=== PATIENT | female | born 1970 | race American Indian/Alaskan Native ===

== ENCOUNTER 2018-11-28 21:00 | Emergency (ER) | payer MEDICAID ==
[2018-11-28] MEDS ORDERED: SUBLIMAZE IV ONE (21:26)
[2018-11-28] MEDS ORDERED: ZOFRAN IV ONE (21:26)
--- NOTE | 2018-11-28 21:31 | Emergency Department Report ---
HPI <DESHAWN BOURGEOIS Last Filed: 11/29/18 05:32> - HPI HPI: Room 24 The patient is a 48-year-old female presenting with a chief complaint of abdominal pain. The patient states for one week she's had a constant periumbilical pain. Patient denies nausea vomiting or diarrhea. Patient denies history of fever. The patient admits to auditory hallucinations and states she has a diagnosis of schizophrenia. The patient gives her pain a score of 8/10 Location: [See above] Duration: [See above] Quality: [See above] Severity: [See above] Modifying factors: [see above] Context: [see above] Mode of transportation: [not driving] <HERRERA CASTORENA - Last Filed: 11/30/18 05:47> - General Chief Complaint: Psych Time Seen by Provider: 11/28/18 21:13 ED Past Medical Hx <DESHAWN BOURGEOIS Last Filed: 11/29/18 05:32> - Past Medical History Previous Medical History?: Yes Hx Hypertension: Yes Hx Psychiatric Treatment: Yes (schizophrenia, bipolar disorder) Hx Asthma: Yes - Surgical History Past Surgical History?: No - Family History Family history: no significant - Social History Smoking Status: Never Smoker Substance Use Type: None <HERRERA CASTORENA Dank - Last Filed: 11/30/18 05:47> - Medications Home Medications: Home Medications Medication Instructions Recorded Confirmed Last Taken Type Famotidine [Pepcid] 20 mg PO BID #20 tablet 11/29/18 Unknown Rx ED Review of Systems ROS: Stated complaint: ABDOMINAL PAIN Other details as noted in HPI <DESHAWN BOURGEOIS - Last Filed: 11/29/18 05:32> ROS: Stated complaint: ABDOMINAL PAIN Other details as noted in HPI Constitutional: denies: fever Eyes: denies: eye pain ENT: denies: throat pain Respiratory: no symptoms reported Cardiovascular: denies: chest pain Endocrine: no symptoms reported Gastrointestinal: abdominal pain. denies: nausea, vomiting, diarrhea Genitourinary: denies: dysuria Musculoskeletal: denies: back pain Neurological: denies: headache <HERRERA CASTORENA Dank - Last Filed: 11/30/18 05:47> Physical Exam - Physical Exam Vital Signs: Vital Signs 11/28/18 11/28/18 11/29/18 21:11 22:50 00:04 Temperature 98.4 F Pulse Rate 88 85 78 Respiratory 18 18 18 Rate Blood Pressure 127/62 Blood Pressure 97/58 102/64 [Left] O2 Sat by Pulse 99 97 99 Oximetry 11/29/18 11/29/18 11/29/18 01:00 01:30 02:00 Temperature Pulse Rate 89 69 80 Respiratory 16 19 17 Rate Blood Pressure Blood Pressure 102/60 93/57 94/49 [Left] O2 Sat by Pulse 99 98 95 Oximetry <DESHAWN BOURGEOIS - Last Filed: 11/29/18 05:32> - Physical Exam Vital Signs: Vital Signs 11/28/18 21:11 Temperature 98.4 F Pulse Rate 88 Respiratory 18 Rate Blood Pressure 127/62 O2 Sat by Pulse 99 Oximetry Physical Exam: GENERAL: The patient is well-developed well-nourished female lying on stretcher not appear to be in acute distress. [] HEENT: Normocephalic. Atraumatic. Extraocular motions are intact. Patient has moist mucous membranes. NECK: Supple. Trachea midline CHEST/LUNGS: Clear to auscultation. There is no respiratory distress noted. HEART/CARDIOVASCULAR: Regular. There is no tachycardia. There is no gallop rub or murmur. ABDOMEN: Abdomen is soft, with diffuse tenderness to palpation. No rebound or guarding. Patient has normal bowel sounds. There is no abdominal distention. SKIN: There is no rash. There is no edema. There is no diaphoresis. NEURO: The patient is awake, alert, and oriented. The patient is cooperative. The patient has no focal neurologic deficits. The patient has normal speech MUSCULOSKELETAL: There is no evidence of acute injury. <HERRERA CASTORENA - Last Filed: 11/30/18 05:47> ED Course Vital Signs 11/28/18 11/28/18 11/29/18 21:11 22:50 00:04 Temperature 98.4 F Pulse Rate 88 85 78 Respiratory 18 18 18 Rate Blood Pressure 127/62 Blood Pressure 97/58 102/64 [Left] O2 Sat by Pulse 99 97 99 Oximetry 11/29/18 11/29/18 11/29/18 01:00 01:30 02:00 Temperature Pulse Rate 89 69 80 Respiratory 16 19 17 Rate Blood Pressure Blood Pressure 102/60 93/57 94/49 [Left] O2 Sat by Pulse 99 98 95 Oximetry - Reevaluation(s) Reevaluation #1: 11/29/18 05:33 Patient observed in this emergency room 4 hours without clinical decompensation. She is eating without difficulty. She does not meet 1013 criteria at this time. She does not want to go back to her detention. Case measured consult has been requested. Patient does not appear to have a medically emergent condition at this time. She does not appear to have a psychiatrically emergent condition at this time. It appears that her main issue is psychosocial. <DESHAWN BOURGEOIS - Last Filed: 11/29/18 05:32> Vital Signs 11/28/18 21:11 Temperature 98.4 F Pulse Rate 88 Respiratory 18 Rate Blood Pressure 127/62 O2 Sat by Pulse 99 Oximetry <HERRERA CASTORENA - Last Filed: 11/30/18 05:47> ED Medical Decision Making - Lab Data Result diagrams: 11/28/18 21:35 11/28/18 21:35 <DESHAWN BOURGEOIS - Last Filed: 11/29/18 05:32> - Lab Data Result diagrams: 11/28/18 21:35 11/28/18 21:35 Laboratory Tests 11/28/18 11/28/18 11/28/18 21:35 21:35 21:35 WBC 7.6 RBC 3.73 Hgb 11.2 Hct 33.1 MCV 89 MCH 30 MCHC 34 RDW 13.9 Plt Count 254 Lymph % (Auto) 34.1 [place] % (Auto) 9.4 H Eos % (Auto) 0.8 Baso % (Auto) 1.4 Lymph # 2.6 [place] # 0.7 Eos # 0.1 Baso # 0.1 Seg Neutrophils % 54.3 Seg Neutrophils # 4.1 Sodium 138 Potassium 3.8 Chloride 100.2 Carbon Dioxide 26 Anion Gap 16 BUN 16 Creatinine 0.7 Estimated GFR > 60 BUN/Creatinine Ratio 23 Glucose 96 Calcium 9.0 Total Bilirubin 0.20 AST 15 ALT 11 Alkaline Phosphatase 130 H Total Protein 8.1 Albumin 3.6 L Albumin/Globulin Ratio 0.8 Lipase 36 Salicylates < 0.3 L Urine Opiates Screen Urine Methadone Screen Acetaminophen Ur Barbiturates Screen Ur Phencyclidine Scrn Ur Amphetamines Screen U Benzodiazepines Scrn Urine Cocaine Screen U Marijuana (THC) Screen Drugs of Abuse Note Plasma/Serum Alcohol 11/28/18 11/28/18 11/28/18 21:35 21:35 21:35 WBC RBC Hgb Hct MCV MCH MCHC RDW Plt Count Lymph % (Auto) [place] % (Auto) Eos % (Auto) Baso % (Auto) Lymph # [place] # Eos # Baso # Seg Neutrophils % Seg Neutrophils # Sodium Potassium Chloride Carbon Dioxide Anion Gap BUN Creatinine Estimated GFR BUN/Creatinine Ratio Glucose Calcium Total Bilirubin AST ALT Alkaline Phosphatase Total Protein Albumin Albumin/Globulin Ratio Lipase Salicylates Urine Opiates Screen Presumptive negative Urine Methadone Screen Presumptive negative Acetaminophen < 5.0 L Ur Barbiturates Screen Presumptive negative Ur Phencyclidine Scrn Presumptive negative Ur Amphetamines Screen Presumptive negative U Benzodiazepines Scrn Presumptive negative Urine Cocaine Screen Presumptive negative U Marijuana (THC) Screen Presumptive negative Drugs of Abuse Note Disclamer Plasma/Serum Alcohol < 0.01 - Radiology Data Radiology results: report reviewed (CT abdomen and pelvis), image reviewed (CT abdomen and pelvis) [place] [address] Cat Scan Report Signed Patient: LAURA BLACKWELL MR#: [id number] 408 : 1970 Acct:[id number] Age/Sex: 48 / F ADM Date: 11/28/18 Loc: ED Attending Dr: Ordering Physician: HERRERA CASTORENA MD Date of Service: 11/28/18 Procedure(s): CT abdomen pelvis w con Accession Number(s): [id number] cc: HERRERA CASTORENA MD PROCEDURE: CT ABDOMEN PELVIS W CON TECHNIQUE: Computerized axial tomography of the abdomen and pelvis was performed after the IV injection of iodinated nonionic contrast. CT DOSE LENGTH PRODUCT: mGycm HISTORY: diffuse abdominal pain COMPARISONS: None . FINDINGS: Benign-appearing ring-shaped calcifications are noted along the right lateral margin of right lobe liver. Spleen, pancreas and adrenal glands are within normal limits. Bilateral kidneys demonstrate uniform enhancement without hydronephrosis. Urinary bladder is unremarkable. Aorta is of normal caliber. There is no free fluid or free air. Status post cholecystectomy. Small bowel loops are within normal limits. Appendix is normal. Vertebral height is normal. IMPRESSION: No acute intra-abdominal or pelvic pathology This document is electronically signed by Brook Roca MD., Nov 28 2018 11:42:53 PM ET Transcribed By: [facility] [place] Dictated By: BROOK ROCA Electronically Authenticated By: BROOK ROCA Signed Date/Time: 11/28/182344 DD/ 28 TD/TT: 11/28/182328 - Differential Diagnosis gastritis, peptic ulcer disease, pancreatitis, diverticulitis <MIKEMikiHERRERA Dank - Last Filed: 11/30/18 05:47> Critical care attestation.: If time is entered above; I have spent that time in minutes in the direct care of this critically ill patient, excluding procedure time. <DESHAWN BOURGEOIS - Last Filed: 11/29/18 05:32> Critical care attestation.: If time is entered above; I have spent that time in minutes in the direct care of this critically ill patient, excluding procedure time. <MIKEMikiHERRERA Dank - Last Filed: 11/30/18 05:47> ED Disposition Is pt being admited?: No Does the pt Need Aspirin: No <DESHAWN BOURGEOIS - Last Filed: 11/29/18 05:32> Is pt being admited?: No Does the pt Need Aspirin: No Time of Disposition: 00:56 (awaiting eval) <MIKEMikiHERRERA Dank - Last Filed: 11/30/18 05:47> Clinical Impression: Acute abdominal pain, Social problem Disposition: DC-01 TO HOME OR SELFCARE Condition: Stable Instructions: Abdominal Pain (ED) Additional Instructions: Return to the emergency department immediately should you develop worsening symptoms, fever, inability to tolerate food or liquid or any other concerns. Prescriptions: Famotidine [Pepcid] 20 mg PO BID #20 tablet Referrals: KRYSTIAN VIDES MD [Primary Care Provider] - 3-5 Days NARDA TRAN MD [Staff Physician] - 3-5 Days (Dr. Tran is a weatherstrip machine operator. Please follow up with him for further evaluation) [facility] [Outside] - 3-5 Days
[2018-11-28 22:03] LABS: Basophils # (Auto) 0.1 K/mm3 (0.0-0.1); Basophils % (Auto) 1.4 % (0.0-1.8); Eosinophils # (Auto) 0.1 K/mm3 (0.0-0.4); Eosinophils % (Auto) 0.8 % (0.0-4.3); Hematocrit 33.1 % (30.3-42.9); Hemoglobin 11.2 gm/dl (10.1-14.3); Lymphocytes # (Auto) 2.6 K/mm3 (1.2-5.4); Lymphocytes % (Auto) 34.1 % (13.4-35.0); Mean Corpuscular HGB Conc 34 % (30-34); Mean Corpuscular Volume 89 fl (79-97); Monocytes # (Auto) 0.7 K/mm3 (0.0-0.8); Monocytes % (Auto) 9.4 % (0.0-7.3); Platelet Count 254 K/mm3 (140-440); Red Blood Count 3.73 M/mm3 (3.65-5.03); Red Cell Distribution Width 13.9 % (13.2-15.2)
[2018-11-28 22:07] LABS: Amphetamine Screen,Urine PRESUMPTIVE NEGATIVE; Benzodiazepines Screen,Urine PRESUMPTIVE NEGATIVE; Cannabinoid Screen,Urine PRESUMPTIVE NEGATIVE; Cocaine Screen,Urine PRESUMPTIVE NEGATIVE; Methadone Screen,Urine PRESUMPTIVE NEGATIVE; Opiate Screen,Urine PRESUMPTIVE NEGATIVE
[2018-11-28 22:29] LABS: Alanine Aminotransferase 11 units/L (7-56); Albumin 3.6 g/dL (3.9-5); BUN/Creatinine Ratio 23; Blood Urea Nitrogen 16 mg/dL (7-17); Hemolysis Index 17
--- NOTE | 2018-11-28 23:45 | Cat Scan Report ---
PROCEDURE: CT ABDOMEN PELVIS W CON TECHNIQUE: Computerized axial tomography of the abdomen and pelvis was performed after the IV inject ion of iodinated nonionic contrast. CT DOSE LENGTH PRODUCT: mGycm HISTORY: diffuse abdominal pain COMPARISONS: None . FINDINGS: Benign-appearing ring-shaped calcifications are noted along the right lateral margin of right lobe li ronda. Spleen, pancreas and adrenal glands are within normal limits. Bilateral kidneys demonstrate unif orm enhancement without hydronephrosis. Urinary bladder is unremarkable. Aorta is of normal caliber. There is no free fluid or free air. Status post cholecystectomy. Small bowel loops are within normal limits. Appendix is normal. Vertebral height is normal. IMPRESSION: No acute intra-abdominal or pelvic pathology This document is electronically signed by Guero Roca MD., Nov 28 2018 11:42:53 PM ET
[2018-11-29 02:43] LABS: Bilirubin,Urine NEG (Negative); Blood,Urine NEG (Negative); Color,Urine Straw (Yellow); Protein,Urine <15 mg/dL mg/dL (Negative); Urobilinogen,Urine < 2.0 mg/dL (<2.0)
[2018-11-29 05:48] VITALS: BP 97/55
== END 2018-11-29 05:48 | disposition home or self-care (01) ==
LOC: ED 21:00
DX: R10.33 Periumbilical pain (principal); I10 Essential (primary) hypertension; J45.909 Unspecified asthma, uncomplicated; F31.9 Bipolar disorder, unspecified; F20.9 Schizophrenia, unspecified
CPT/HCPCS: 36415; 74177; 80053; 80307; 81001; 83690; 85025; 96374; 96375; 99285; G0480; J2405; J3010; Q9967; 80320

== ENCOUNTER 2018-12-28 20:02 | Emergency (ER) | payer MEDICAID ==
--- NOTE | 2018-12-28 20:12 | Emergency Department Report ---
Blank Doc - Documentation Documentation: This is a 48-year-old female that presents with nausea vomiting. This initial assessment/diagnostic orders/clinical plan/treatment(s) is/are subject to change based on patient's health status, clinical progression and re- assessment by fellow clinical providers in the ED. Further treatment and workup at subsequent clinical providers discretion. Patient/guardians urged not to elope from the ED as their condition may be serious if not clinically assessed and managed. Initial orders include: 1- Patient sent to [facility] for further evaluation and treatment 2- labs
[2018-12-28 20:14] VITALS: BP 141/88
[2018-12-28 20:43] LABS: Alanine Aminotransferase 17 units/L (7-56); Albumin 4.1 g/dL (3.9-5); BUN/Creatinine Ratio 24; Basophils # (Auto) 0.1 K/mm3 (0.0-0.1); Basophils % (Auto) 0.6 % (0.0-1.8); Blood Urea Nitrogen 19 mg/dL (7-17); Calcium 10.1 mg/dL (8.4-10.2); Eosinophils % (Auto) 0.1 % (0.0-4.3); Hematocrit 40.3 % (30.3-42.9); Hemoglobin 13.3 gm/dl (10.1-14.3); Hemolysis Index 8; Lymphocytes # (Auto) 2.8 K/mm3 (1.2-5.4); Lymphocytes % (Auto) 24.8 % (13.4-35.0); Mean Corpuscular HGB Conc 33 % (30-34); Mean Corpuscular Volume 88 fl (79-97); Monocytes # (Auto) 0.8 K/mm3 (0.0-0.8); Monocytes % (Auto) 6.8 % (0.0-7.3); Platelet Count 316 K/mm3 (140-440); Red Blood Count 4.59 M/mm3 (3.65-5.03); Red Cell Distribution Width 13.6 % (13.2-15.2)
[2018-12-28] MEDS ORDERED: PEPCID IV ONE (23:47)
[2018-12-28] MEDS ORDERED: ZOFRAN IV ONE (23:47)
[2018-12-28] MEDS ORDERED: NACL 0.9% 1000 ML 1,000 ML IV ONE (23:47)
[2018-12-29] MEDS ORDERED: K-DUR PO ONE (00:31)
--- NOTE | 2018-12-29 00:52 | Emergency Department Report ---
<CHINALEONARDATriceANNIKA - Last Filed: 12/29/18 05:01> ED N/V/D HPI - General Chief complaint: Nausea/Vomiting/Diarrhea Stated complaint: VOMITTING Time Seen by Provider: 12/28/18 20:11 - Related Data Previous Rx's Medication Instructions Recorded Last Taken Type Famotidine [Pepcid] 20 mg PO BID #20 tablet 11/29/18 Unknown Rx Ondansetron [Zofran Odt] 4 mg PO Q6HR #15 tab.rapdis 12/29/18 Unknown Rx Ranitidine HCl [Zantac] 150 mg PO Q12H #20 tablet 12/29/18 Unknown Rx Allergies Allergy/AdvReac Type Severity Reaction Status Date / Time No Known Allergies Allergy Verified 12/28/18 20:14 ED Past Medical Hx - Medications Home Medications: Home Medications Medication Instructions Recorded Confirmed Last Taken Type Famotidine [Pepcid] 20 mg PO BID #20 tablet 11/29/18 Unknown Rx Ondansetron [Zofran Odt] 4 mg PO Q6HR #15 tab.rapdis 12/29/18 Unknown Rx Ranitidine HCl [Zantac] 150 mg PO Q12H #20 tablet 12/29/18 Unknown Rx ED Course - Reevaluation(s) Reevaluation #1: 12/29/18 05:01 I assumed care of the patient from Dr. Bowman at shift change at 0200 hours. Patient awaiting imaging test results and urinalysis. On reevaluation, the patient tolerated the oral fluids well with no nausea or vomiting in the ED. Abdomen series x-ray shows no acute abdominal pathology or cardiopulmonary abnormalities. Urinalysis is unremarkable except for a few white blood cells in the urine possibly from contamination. Patient was discharged home with antiemetics and H2 blockers as advised by Dr. Bowman. 12/29/18 05:08 ED Medical Decision Making - Lab Data Result diagrams: 12/28/18 20:17 12/28/18 20:17 - Radiology Data Radiology results: report reviewed, image reviewed Abdomen series x-ray shows no acute cardiopulmonary abnormalities or acute abdomen pathology. - Medical Decision Making I assumed care of the patient from Dr. Bowman at shift change at 0200 hours. Patient awaiting imaging test results and urinalysis. On reevaluation, the patient tolerated the oral fluids well with no nausea or vomiting in the ED. Abdomen series x-ray shows no acute abdominal pathology or cardiopulmonary abnormalities. Urinalysis is unremarkable except for a few white blood cells in the urine possibly from contamination. Patient was discharged home with antiemetics and H2 blockers as advised by Dr. Bowman. ED Disposition Clinical Impression: Nausea and vomiting in adult, Gastroenteritis GERD (gastroesophageal reflux disease) Qualifiers: Esophagitis presence: without esophagitis Qualified Code(s): K21.9 - Gastro- esophageal reflux disease without esophagitis Disposition: TO HOME OR SELFCARE Is pt being admited?: No Does the pt Need Aspirin: No Condition: Stable Instructions: Gastroenteritis (ED), Gastroesophageal Reflux Disease (ED), Acute Nausea and Vomiting (ED) Additional Instructions: Maintain a clear liquid diet for 12-24 hours, drink plenty of fluids, take medications and follow-up with your primary care physician in 3-5 days for reevaluation. Return to the ED immediately if symptoms get worse. Prescriptions: Ranitidine HCl [Zantac] 150 mg PO Q12H #20 tablet Ondansetron [Zofran Odt] 4 mg PO Q6HR #15 tab.rapdis Referrals: 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 They have been trying [id number] medication without relief. No reports of diarrhea or fever. Triage note said abdominal pain scale 5/10 however patient denies abdominal pain currently. [employer] [facility] states that patient has not been with them a long time and she does not know the details of her past medical history. She has continued to vomit in the waiting room waiting to be seen and is currently coffee-ground in appearance however food and beverage server states that initially vomitus was clear and no gross hematemesis reported. ED Review of Systems ROS: Stated complaint: VOMITTING Other details as noted in HPI Comment: All other systems reviewed and negative ED Past Medical Hx - Past Medical History Hx Hypertension: Yes Hx Psychiatric Treatment: Yes (schizophrenia, bipolar disorder) Hx Asthma: Yes Additional medical history: Bipolar, Schizo, - Social History Smoking Status: Never Smoker Substance Use Type: None ED Physical Exam - General Limitations: No Limitations - Other Other exam information: General: No limitations, patient is alert in no acute distress Head exam: Atraumatic, normocephalic Eyes exam: Normal appearance, nonicteric sclera ENT: Dry mucous membranes Neck exam: Normal inspection Respiratory exam: Clear to auscultation bilateral, no wheezes, rales, crackles Cardiovascular: Normal rate and rhythm, normal heart sounds Abdomen: Soft, nondistended, and nontender, with normal bowel sounds, no reboun d, or guarding. No surgical scars to the abdomen Extremity: Full range of motion normal inspection no deformity Back: Normal Inspection, full range of motion, no tenderness Neurologic: Alert, cranial nerves intact, no motor or sensory deficit Psychiatric: normal affect, normal mood Skin: Warm, dry, intact ED Course Vital Signs 12/28/18 12/28/18 12/29/18 20:10 20:11 05:15 Temperature 98.3 F 98.3 F Pulse Rate 85 82 77 Respiratory 18 18 17 Rate Blood Pressure 141/88 141/88 O2 Sat by Pulse 99 99 99 Oximetry - Reevaluation(s) Reevaluation #1: 12/29/18 00:50 Patient treated with IV Zofran, 1 L normal saline, and IV Pepcid. Pt to receive mouth potassium for mild hypokalemia which patient is tolerating by mouth. Awaiting results for urine straight cath is also rule out urinary tract infection and blood test to rule out . X-ray pending result hcg result. Pt will be signed out to ITALIA Blanc to f/u results and reassess for PO tolerance. Reevaluation #2: 01/05/19 18:14 I reevaluated her at this time. Did have a small amount of white cells. no culture sent. I attempted to call both numbers on record to check on the pt. Number provided for Parker noonan states that mailbox is full. I called sister on record and she does not have the number to get in contact with the pt. ED Medical Decision Making - Lab Data Result diagrams: 12/28/18 20:17 12/28/18 20:17 Lab Results 12/28/18 12/28/18 12/29/18 Range/Units 20:17 20:17 00:30 WBC 11.4 H (4.5-11.0) K/mm3 RBC 4.59 (3.65-5.03) M/mm3 Hgb 13.3 (10.1-14.3) gm/dl Hct 40.3 (30.3-42.9) % MCV 88 (79-97) fl MCH 29 (28-32) pg MCHC 33 (30-34) % RDW 13.6 (13.2-15.2) % Plt Count 316 (140-440) K/mm3 Lymph % (Auto) 24.8 (13.4-35.0) % [place] % (Auto) 6.8 (0.0-7.3) % Eos % (Auto) 0.1 (0.0-4.3) % Baso % (Auto) 0.6 (0.0-1.8) % Lymph # 2.8 (1.2-5.4) K/mm3 [place] # 0.8 (0.0-0.8) K/mm3 Eos # 0.0 (0.0-0.4) K/mm3 Baso # 0.1 (0.0-0.1) K/mm3 Seg Neutrophils % 67.7 (40.0-70.0) % Seg Neutrophils # 7.7 (1.8-7.7) K/mm3 Sodium 135 L (137-145) mmol/L Potassium 3.4 L (3.6-5.0) mmol/L Chloride 90.6 L (98-107) mmol/L Carbon Dioxide 27 (22-30) mmol/L Anion Gap 21 mmol/L BUN 19 H (7-17) mg/dL Creatinine 0.8 (0.7-1.2) mg/dL Estimated GFR > 60 ml/min BUN/Creatinine Ratio 24 % Glucose 105 H (65-100) mg/dL Calcium 10.1 (8.4-10.2) mg/dL Total Bilirubin 0.50 (0.1-1.2) mg/dL AST 20 (5-40) units/L ALT 17 (7-56) units/L Alkaline Phosphatase 136 H (35-129) units/L Total Protein 9.4 H (6.3-8.2) g/dL Albumin 4.1 (3.9-5) g/dL Albumin/Globulin Ratio 0.8 % Lipase 25 (13-60) units/L HCG, Qual (Negative) Urine Color [place] (Yellow) Urine Turbidity Slightly-cloudy (Clear) Urine pH 5.0 (5.0-7.0) Ur Specific [place] 1.027 (1.003-1.030) Urine Protein 30 mg/dl (Negative) mg/dL Urine Glucose (UA) Neg (Negative) mg/dL Urine Ketones 20 (Negative) mg/dL Urine Blood Sm (Negative) Urine Nitrite Neg (Negative) Urine Bilirubin Neg (Negative) Urine Urobilinogen 4.0 (<2.0) mg/dL Ur Leukocyte Esterase Neg (Negative) Urine WBC (Auto) 7.0 H (0.0-6.0) /HPF Urine RBC (Auto) 10.0 (0.0-6.0) /HPF U Epithel Cells (Auto) 1.0 (0-13.0) /HPF Urine Bacteria (Auto) 1+ (Negative) /HPF Hyaline Casts 24 /LPF Urine Mucus 3+ /HPF 12/29/18 Range/Units 01:35 WBC (4.5-11.0) K/mm3 RBC (3.65-5.03) M/mm3 Hgb (10.1-14.3) gm/dl Hct (30.3-42.9) % MCV (79-97) fl MCH (28-32) pg MCHC (30-34) % RDW (13.2-15.2) % Plt Count (140-440) K/mm3 Lymph % (Auto) (13.4-35.0) % [place] % (Auto) (0.0-7.3) % Eos % (Auto) (0.0-4.3) % Baso % (Auto) (0.0-1.8) % Lymph # (1.2-5.4) K/mm3 [place] # (0.0-0.8) K/mm3 Eos # (0.0-0.4) K/mm3 Baso # (0.0-0.1) K/mm3 Seg Neutrophils % (40.0-70.0) % Seg Neutrophils # (1.8-7.7) K/mm3 Sodium (137-145) mmol/L Potassium (3.6-5.0) mmol/L Chloride (98-107) mmol/L Carbon Dioxide (22-30) mmol/L Anion Gap mmol/L BUN (7-17) mg/dL Creatinine (0.7-1.2) mg/dL Estimated GFR ml/min BUN/Creatinine Ratio % Glucose (65-100) mg/dL Calcium (8.4-10.2) mg/dL Total Bilirubin (0.1-1.2) mg/dL AST (5-40) units/L ALT (7-56) units/L Alkaline Phosphatase (35-129) units/L Total Protein (6.3-8.2) g/dL Albumin (3.9-5) g/dL Albumin/Globulin Ratio % Lipase (13-60) units/L HCG, Qual Negative (Negative) Urine Color (Yellow) Urine Turbidity (Clear) Urine pH (5.0-7.0) Ur Specific [place] (1.003-1.030) Urine Protein (Negative) mg/dL Urine Glucose (UA) (Negative) mg/dL Urine Ketones (Negative) mg/dL Urine Blood (Negative) Urine Nitrite (Negative) Urine Bilirubin (Negative) Urine Urobilinogen (<2.0) mg/dL Ur Leukocyte Esterase (Negative) Urine WBC (Auto) (0.0-6.0) /HPF Urine RBC (Auto) (0.0-6.0) /HPF U Epithel Cells (Auto) (0-13.0) /HPF Urine Bacteria (Auto) (Negative) /HPF Hyaline Casts /LPF Urine Mucus /HPF - Medical Decision Making Plan to s/o to [facility] (see course) dispo pending completion of ED workup - Differential Diagnosis GERD, gastroenteritis, gastritis, appendicitis, , UTI Critical Care Time: No Critical care attestation.: If time is entered above; I have spent that time in minutes in the direct care of this critically ill patient, excluding procedure time.
[2018-12-29 01:12] LABS: Bacteria,Urine 1+ /HPF (Negative); Bilirubin,Urine NEG (Negative); Blood,Urine SM (Negative); Color,Urine Amber (Yellow); Hyaline Casts,Urine 24 /LPF; Mucus,Urine 3+ /HPF
--- NOTE | 2018-12-29 03:29 | XRay Report ---
PROCEDURE: XR ABD SERIES W CXR 1V TECHNIQUE: A portable upright view the chest was obtained along with 2 portable views of the abdomen and pelvis. HISTORY: n,v COMPARISONS: None FINDINGS: The chest reveals a normal heart size and mediastinum. The lungs are not congested. There are no loca lized infiltrates or effusions. There are surgical clips in the right upper quadrant. The bowel gas pattern otherwise is normal. Free air is not seen. The bones and soft tissues are well-maintained. IMPRESSION: No acute cardiopulmonary process. Unremarkable bowel gas pattern. No acute process identified.. This document is electronically signed by Carlo Paniagua MD., December 29 2018 03:27:09 AM ET
== END 2018-12-29 05:15 | disposition home or self-care (01) ==
LOC: ED 20:02
DX: K21.9 Gastro-esophageal reflux disease without esophagitis (principal); K52.9 Noninfective gastroenteritis and colitis, unspecified; I10 Essential (primary) hypertension; J45.909 Unspecified asthma, uncomplicated; Z79.899 Other long term (current) drug therapy
CPT/HCPCS: 36415; 74022; 80053; 81001; 83690; 84703; 85025; 96361; 96374; 96375; 99284; J2405; J7030